=== PATIENT | female | born 1985 | race African-American/Black ===

== ENCOUNTER 2019-11-29 18:51 | Emergency (ER) | payer MEDICAID ==
[~2019-11-29] VITALS: Ht 170.2 cm; Wt 64.0 kg
[2019-11-29] MEDS ORDERED: LIDOCAINE 1%/EPI 1:100,000 10 ML VIAL IJ ONE (22:15)
[2019-11-29] MEDS ORDERED: BACITRACIN ZINC OINT UDPKT TOP ONE (22:15)
[2019-11-29] MEDS ORDERED: ACETAMINOPHEN 500MG TABLET PO ONE (22:15)
[2019-11-29] MEDS ORDERED: LIDOCAINE HCL/EPINEPHRINE 1%-EPI 1:100,000 20 ML VIAL INFIL ONE (22:30)
[2019-11-30 00:58] VITALS: BP 122/79
== END 2019-11-30 00:59 | disposition home or self-care (01) ==
LOC: ER 18:51
DX: S01.81XA Laceration without foreign body of other part of head, initial encounter (principal); S01.01XA Laceration without foreign body of scalp, initial encounter; Z88.0 Allergy status to penicillin; Y08.89XA Assault by other specified means, initial encounter; Y93.64 Activity, baseball; Y92.89 Other specified places as the place of occurrence of the external cause; Y99.8 Other external cause status
CPT/HCPCS: 12002; 12013; 70450; 99284; J3490